=== PATIENT | female | born 1980 | race Caucasian/White ===

== ENCOUNTER 2019-09-06 23:22 | Inpatient (IN) | payer OTHER ==
[~2019-09-06] VITALS: Ht 172.7 cm; Wt 113.7 kg
[2019-09-07 04:03] LABS: Basophils # (auto) 0.1 10 ^3/uL (0-0.2); Basophils % (auto) 1.3 % (0.0-2.0); Eosinophils # (auto) 0.1 10 ^3/uL (0-0.8); Eosinophils % (auto) 1.1 % (0.0-7.0); Hematocrit 40.8 % (36.0-46.0); Hemoglobin 12.5 g/dL (12.2-16.2); Lymphocytes % (auto) 38.3 % (10.0-50.0); Mean Corpuscular Hemoglobin 27.3 pg (28.0-32.0); Mean Corpuscular Hgb Conc. 30.7 g/dL (32.0-36.0); Mean Corpuscular Volume 88.8 fL (80.0-100.0); Monocytes # (auto) 0.5 10 ^3/uL (0-1.3); Monocytes % (auto) 10.4 % (0.0-12.0); Neutrophils # (auto) 2.5 10 ^3/uL (1.6-8.6); Neutrophils % (auto) 48.9 % (37.0-80.0); Nucleated Red Blood Cells % 0.3 %; Platelet Count (auto) 256 10^3/uL (140-450); Red Cell Distribution Width 18.5 % (11.8-14.3); White Blood Cell 5.2 10^3/uL (4.4-10.8)
[2019-09-07 04:20] LABS: Albumin 2.9 g/dL (3.4-5.0); Calcium 8.6 mg/dL (8.5-10.1); Potassium 4.5 mmol/L (3.5-5.1)
[2019-09-07 04:25] LABS: BUN/Creatinine Ratio 10.9; Bilirubin, Total 0.6 mg/dL (0.2-1.0); Total Protein 6.9 g/dL (6.4-8.2)
[2019-09-07] MEDS ORDERED: SODIUM CHLORIDE 0.9% 1,000 ML IV ONE (05:00)
[2019-09-07 05:25] LABS: Urine Bacteria NONE SEEN /hpf (None Seen); Urine Blood Negative /uL (Negative); Urine Hyaline Cast FEW /lpf (0 - 2); Urine Mucus FEW (None Seen); Urine Specific Gravity 1.024 (1.001-1.035); Urine WBC 5 /hpf (0 - 5)
[2019-09-07 05:38] LABS: Amphetamine Screen, Urine NEGATIVE (NEGATIVE); Barbiturate Scree,Urine NEGATIVE (NEGATIVE); Benzodiazephine Screen, Urine NEGATIVE (NEGATIVE); Cannabinoid Screen, Urine NEGATIVE (NEGATIVE); Cocaine Screen, Urine NEGATIVE (NEGATIVE); Opiate Scree,Urine NEGATIVE (NEGATIVE); Phencyclidine Screen, Urine NEGATIVE (NEGATIVE)
[2019-09-07] MEDS ORDERED: AZITHROMYCIN 500MG/ 250ML 250 ML IV ONE (06:30)
[2019-09-07] MEDS ORDERED: cefTRIAXone 1GM/50ML D5W 50 ML IV ONE ×2 (06:30→15:15)
[2019-09-07] MEDS ORDERED: SODIUM CHLORIDE 0.9% 1,000 ML IV SCH (06:58)
[2019-09-07] MEDS ORDERED: chlordiazePOXIDE HCL 25 MG CAP PO SCH (07:00)
[2019-09-07] MEDS ORDERED: DEXTROSE (50%) 50ML SYRG IV PRN ×2 (07:00→15:15)
[2019-09-07] MEDS ORDERED: ACETAMINOPHEN 500 MG TAB PO PRN (07:00)
[2019-09-07] MEDS ORDERED: HYDROcodone-ACET 5/325MG TAB PO PRN (07:30)
[2019-09-07] MEDS ORDERED: MORPHINE SULFATE 4 MG/ML SYR/VIAL IV PRN (07:30)
[2019-09-07] MEDS ORDERED: DOCUSATE SOD 100 MG CAP PO PRN (07:30)
[2019-09-07] MEDS ORDERED: NITROGLYCERIN 0.4 MG SL TAB SL PRN (07:30)
[2019-09-07] MEDS ORDERED: ONDANSETRON HCL 4 MG/2 ML VIAL IV PRN (07:30)
[2019-09-07] MEDS ORDERED: MORPHINE SULF INJ 2 MG/ML SYRINGE 1ML IV PRN ×2 (07:30→16:45)
[2019-09-07] MEDS ORDERED: ACETAMINOPHEN 325 MG TAB PO PRN ×2 (07:30→13:30)
[2019-09-07] MEDS: InsuLIN REG 1unit/0.01ml Soln (100units/ml) SC SCH ×3 (07:55→17:00)
[2019-09-07] MEDS: ACCU-CHEK COMFORT CURVE STRIP VI SCH ×4 (07:56→21:22)
[2019-09-07 09:26] VITALS: BP 133/89
[2019-09-07 09:41] VITALS: BP 133/89
[2019-09-07] MEDS ORDERED: ASCORBIC ACID 1,000 MG TAB PO SCH (10:00)
[2019-09-07] MEDS ORDERED: DOXYCYCLINE 100MG/250ML 250 ML IV SCH (10:00)
[2019-09-07] MEDS ORDERED: CHOLECALCIFEROL (VITD3) 1,000IU=25mCg TAB PO SCH (10:00)
[2019-09-07] MEDS ORDERED: ZINC SULFATE 220mg CAP or TAB PO SCH (10:00)
[2019-09-07] MEDS: ENOXAPARIN SOD 40 MG/0.4 ML SYRINGE SC SCH (10:18)
[2019-09-07] MEDS ORDERED: BENA10TA9 PO (13:04)
[2019-09-07] MEDS ORDERED: BENA20TA14 PO (13:04)
[2019-09-07] MEDS ORDERED: BENAZEPRIL HCL 10 MG TAB PO ONE (13:45)
[2019-09-07] MEDS: BENAZEPRIL HCL 10 MG TAB PO SCH (13:45)
[2019-09-07 13:48] VITALS: BP 164/99
[2019-09-07] MEDS ORDERED: ALBUTEROL SULF HFA 90MCG INH 200DOSE IN SCH ×3 (14:00)
[2019-09-07] MEDS ORDERED: AZITHROMYCIN 250 MG TAB PO ONE (15:15)
[2019-09-07] MEDS ORDERED: hydrALAZINE HCL 20 MG/ML VL IV PRN (15:15)
[2019-09-07] MEDS: SODIUM CHLORIDE 0.9% 1,000 ML IV SCH (15:15)
[2019-09-07] MEDS ORDERED: methylPREDNISolone SOD SUCC 40 MG/ML VL IV ONE (15:15)
[2019-09-07] MEDS ORDERED: IPRATROPIUM BROM 0.5 MG/2.5ML INH SOL NEB PRN (15:15)
[2019-09-07] MEDS ORDERED: THIAMINE HCL 100 MG TAB PO ONE (15:15)
[2019-09-07] MEDS ORDERED: ALBUTEROL SULF 2.5 MG/0.5ML(0.5%) NEB SOLN NEB PRN (15:15)
[2019-09-07] MEDS ORDERED: chlordiazePOXIDE HCL 25 MG CAP PO PRN (15:15)
[2019-09-07] MEDS ORDERED: MULTIPLE VITAMINS W/ MINERALS TAB PO ONE (15:15)
[2019-09-07] MEDS ORDERED: FERR324T4 PO (16:29)
--- NOTE | 2019-09-07 16:29 | NUR ---
IV insertion IV access obtained, via clean sterile technique by inserting 20 gauge catheter at right forearm. IV secured properly. No trauma to site. Patient tolerated well.
[2019-09-07] MEDS ORDERED: METF-371 PO (16:30)
[2019-09-07] MEDS ORDERED: OMEP-260 PO (16:30)
[2019-09-07] MEDS ORDERED: PRAV20TA3 PO (16:31)
--- NOTE | 2019-09-07 16:40 | NUR ---
Accepting Note Received report from Jono MEJIA. Patient sitting up right in bed A&Ox4. Respirations even and non-labored, so S/S of distress or SOB noted, patient currently on 2L NC with O2 sats at 93%. Denies any pain, nausea, vomiting at moment. Complaints of a cough x 1 month. Informed patient of plan of care, patient verbalized understanding. Instructed patient to call for assistance as needed, call light within reach. Safety precautions in place, bed set to lowest locked position x 2 rails up. Will continue to monitor.
[2019-09-07] MEDS ORDERED: IOHEXOL 350 MG/ML 100ML IJ ONE ×2 (16:47→17:14)
[2019-09-07 16:54] VITALS: BP 104/48
--- NOTE | 2019-09-07 16:54 | NUR ---
Radiology at bedside. Patient being taken down for procedure.
[2019-09-07] MEDS: ALBUTEROL SULF 2.5 MG/0.5ML(0.5%) NEB SOLN NEB SCH (18:41)
[2019-09-07] MEDS: IPRATROPIUM BROM 0.5 MG/2.5ML INH SOL NEB SCH (18:41)
--- NOTE | 2019-09-07 19:15 | NUR ---
Opening Note Noc Rn round, pt. awake in bed. Pt. [id number]. Call light within reach. Will complete chart checks and continue to monitor.
--- NOTE | 2019-09-07 19:19 | NUR ---
Patient care endorsed to night ROBERTO Ohara
[2019-09-07] MEDS: methylPREDNISolone SOD SUCC 40 MG/ML VL IV SCH (21:54)
[2019-09-07 22:00] VITALS: BP 115/85
[2019-09-07] MEDS ORDERED: InsuLIN REG 1unit/0.01ml Soln (100units/ml) SC SCH (22:00)
--- NOTE | 2019-09-08 00:25 | NUR ---
Pt. awake in bed O2 levels Pt. awake in bed coughing. Pt. states she is having trouble breathing. pt. currently getting 2L NC with O2 sat at 89. O2 raised to 3L NC and raised to 94%. Pt. sitting up in bed and also given cough medicine as ordered. Pt. tolerated well. Pt. remains sitting up in bed and advised to take meaningful beds.
[2019-09-08] MEDS: guaiFENesin-DM 100/10mg/5ml SYR PO PRN ×2 (00:31→21:51)
[2019-09-08] MEDS: ALBUTEROL SULF 2.5 MG/0.5ML(0.5%) NEB SOLN NEB SCH ×4 (00:35→19:26)
[2019-09-08] MEDS: IPRATROPIUM BROM 0.5 MG/2.5ML INH SOL NEB SCH ×4 (00:35→19:26)
[2019-09-08 05:00] VITALS: BP 132/84
[2019-09-08] MEDS: SODIUM CHLORIDE 0.9% 1,000 ML IV SCH (05:33)
[2019-09-08] MEDS: ACCU-CHEK COMFORT CURVE STRIP VI SCH ×3 (05:56→21:53)
[2019-09-08 06:05] LABS: Basophils # (auto) 0 10 ^3/uL (0-0.2); Basophils % (auto) 0.7 % (0.0-2.0); Eosinophils # (auto) 0 10 ^3/uL (0-0.8); Eosinophils % (auto) 0.1 % (0.0-7.0); Hematocrit 38.9 % (36.0-46.0); Lymphocytes # (auto) 0.3 10 ^3/uL (0.4-5.4); Lymphocytes % (auto) 5.9 % (10.0-50.0); Mean Corpuscular Hemoglobin 27.5 pg (28.0-32.0); Monocytes # (auto) 0.1 10 ^3/uL (0-1.3); Monocytes % (auto) 2.3 % (0.0-12.0); Neutrophils # (auto) 5.2 10 ^3/uL (1.6-8.6); Nucleated Red Blood Cells % 0.1 %; Platelet Count (auto) 246 10^3/uL (140-450); Red Blood Cells 4.37 10^6/uL (4.0-5.20); White Blood Cell 5.8 10^3/uL (4.4-10.8)
[2019-09-08] MEDS: methylPREDNISolone SOD SUCC 40 MG/ML VL IV SCH (06:08)
[2019-09-08] MEDS: InsuLIN REG 1unit/0.01ml Soln (100units/ml) SC SCH ×3 (06:12→21:53)
[2019-09-08 06:16] LABS: Potassium 4.8 mmol/L (3.5-5.1)
[2019-09-08 06:24] LABS: Albumin 2.9 g/dL (3.4-5.0); BUN/Creatinine Ratio 14.6; Bilirubin, Total 0.9 mg/dL (0.2-1.0); Calcium 8.8 mg/dL (8.5-10.1); Magnesium 1.8 mg/dL (1.6-2.6); Total Protein 6.8 g/dL (6.4-8.2)
--- NOTE | 2019-09-08 06:58 | NUR ---
care endorsed care endorsed to day rn. pt. sitting in bed on phone. no distress.
--- NOTE | 2019-09-08 07:45 | NUR ---
Opening Shift Note Assumed care of patient, patient sitting in bed A&Ox4. Respirations even and non-labored,currently in 3L NC, no S/S of distress or SOB noted. Patient denies any pain at the moment. Instructed on POC and to call for assistance as needed, call light within reach. Safety measures in place, bed set to lowest locked position x 2 rails up. Will continue to monitor for changes Q1hr and PRN.
[2019-09-08] MEDS: cefTRIAXone 1GM/50ML D5W 50 ML IV SCH (08:58)
[2019-09-08 09:00] VITALS: BP 123/70
[2019-09-08] MEDS: ENOXAPARIN SOD 40 MG/0.4 ML SYRINGE SC SCH (09:56)
[2019-09-08] MEDS: THIAMINE HCL 100 MG TAB PO SCH (09:56)
[2019-09-08] MEDS: BENAZEPRIL HCL 10 MG TAB PO SCH (09:57)
[2019-09-08] MEDS: AZITHROMYCIN 250 MG TAB PO SCH (09:58)
[2019-09-08] MEDS: MULTIPLE VITAMINS W/ MINERALS TAB PO SCH (09:58)
[2019-09-08] MEDS: PANTOPRAZOLE 40 MG TAB PO SCH (09:58)
[2019-09-08] MEDS ORDERED: BENAZEPRIL HCL 10 MG TAB PO SCH (10:00)
[2019-09-08] MEDS ORDERED: chlordiazePOXIDE HCL 25 MG CAP PO SCH (10:00)
[2019-09-08] MEDS ORDERED: DEXTROSE (50%) 50ML SYRG IV PRN (11:45)
--- NOTE | 2019-09-08 12:40 | NUR ---
Tele box removed from patient per MD's order. Sanitized and [facility] to [facility].
[2019-09-08 13:00] VITALS: BP 124/67
[2019-09-08 17:00] VITALS: BP 121/83
[2019-09-08] MEDS: metFORMIN HYDROCHLORIDE 500 MG TAB PO SCH (18:00)
--- NOTE | 2019-09-08 19:02 | NUR ---
Closing note. Care of patient endorsed to night RN Katty, patient stable no S/S of distress noted
--- NOTE | 2019-09-08 19:25 | NUR ---
opening note pt is upright sitting in bed. She is in no pain or distress. o2 on. pt aware of plan for evening and says she doesn't need anything at this time. will monitor pt.
[2019-09-08 22:00] VITALS: BP 104/76
--- NOTE | 2019-09-08 22:40 | NUR ---
Sister/Contact Pt. requested to add her sister to list of people for contact in chart. Pt. provided name, Daniela Mariano, as her sister. Phone number [phone] and to use same password "[email or web address]".
--- NOTE | 2019-09-08 22:44 | NUR ---
Family updated on pt status Family of Manny Loving updated on patient's status and condition. All questions and concerns addressed. SISTER verbalized understanding.
[2019-09-09] MEDS: IPRATROPIUM BROM 0.5 MG/2.5ML INH SOL NEB SCH ×4 (00:34→18:13)
[2019-09-09] MEDS: ALBUTEROL SULF 2.5 MG/0.5ML(0.5%) NEB SOLN NEB SCH ×4 (00:35→18:13)
[2019-09-09 05:00] VITALS: BP 111/70
[2019-09-09] MEDS: guaiFENesin-DM 100/10mg/5ml SYR PO PRN ×2 (05:23→10:38)
--- NOTE | 2019-09-09 05:30 | NUR ---
Humidifier/IS Humidifier attached to nasal cannula. Incentive spirometer at bedside. Explained to pt. how to use and encouraged her to try. She said she would try later. Pt. explained the importance for using IS.
[2019-09-09 05:59] LABS: Potassium 4.6 mmol/L (3.5-5.1)
[2019-09-09] MEDS: ACCU-CHEK COMFORT CURVE STRIP VI SCH ×4 (06:30→21:45)
[2019-09-09] MEDS: InsuLIN REG 1unit/0.01ml Soln (100units/ml) SC SCH ×4 (06:31→21:45)
--- NOTE | 2019-09-09 06:57 | NUR ---
end of shift pt care endorsed to day rn pt resting in bed o2 on no pain no distress
--- NOTE | 2019-09-09 07:40 | NUR ---
Opening Shift Note Assumed care of patient, from Sena philippe RN. Patient sitting in bed A&Ox4, watching TV. Respirations even and non-labored, no S/S of distress or SOB noted. Patient denies any pain at the moment. Instructed on POC and and to call for assistance as needed, call light within reach. Incentive Spirometer at bedside, educated patient about usage of IS. Safety measures in place, bed set to lowest locked position x 2 rails up. Will continue to monitor for changes Q1hr and PRN.
[2019-09-09] MEDS: metFORMIN HYDROCHLORIDE 500 MG TAB PO SCH ×2 (08:00→18:00)
[2019-09-09 09:00] VITALS: BP 136/78
[2019-09-09] MEDS: BENAZEPRIL HCL 10 MG TAB PO SCH (09:41)
[2019-09-09] MEDS: THIAMINE HCL 100 MG TAB PO SCH (09:41)
[2019-09-09] MEDS: MULTIPLE VITAMINS W/ MINERALS TAB PO SCH (09:42)
[2019-09-09] MEDS: PANTOPRAZOLE 40 MG TAB PO SCH (09:42)
[2019-09-09] MEDS: AZITHROMYCIN 250 MG TAB PO SCH (09:42)
[2019-09-09] MEDS ORDERED: chlordiazePOXIDE HCL 25 MG CAP PO SCH (10:00)
[2019-09-09 13:00] VITALS: BP 108/75
--- NOTE | 2019-09-09 15:28 | NUR ---
IV Access Lost IV access in both arms. Placed 22G in left forearm, in one attempt patient tolerated well. IV patent and intact. Education to patient provided.
[2019-09-09] MEDS: cefTRIAXone 1GM/50ML D5W 50 ML IV SCH (15:52)
[2019-09-09 17:00] VITALS: BP 110/71
--- NOTE | 2019-09-09 19:18 | NUR ---
Closing Note Endorsed patient care to Katty RN. Patient stable safety measures in place.
--- NOTE | 2019-09-09 19:25 | NUR ---
Opening Shift Note Assumed care of patient. Patient sitting in bed A&Ox4, watching TV. Respirations even and non-labored, no S/S of distress or SOB noted. Patient denies any pain at the moment. Instructed on POC and and to call for assistance as needed, call light within reach. Incentive Spirometer at bedside, educated patient about usage of IS. Safety measures in place, bed set to lowest locked position x 2 rails up. Will continue to monitor for changes Q1hr and PRN.
--- NOTE | 2019-09-09 19:35 | NUR ---
process technician at bedside
[2019-09-09 22:00] VITALS: BP 117/83
[2019-09-10] VITALS (7 sets, daily range): BP systolic 112–133; BP diastolic 73–85
[2019-09-10] MEDS: IPRATROPIUM BROM 0.5 MG/2.5ML INH SOL NEB SCH ×4 (00:03→18:26)
[2019-09-10] MEDS: ALBUTEROL SULF 2.5 MG/0.5ML(0.5%) NEB SOLN NEB SCH ×4 (00:04→18:25)
[2019-09-10] MEDS: guaiFENesin-DM 100/10mg/5ml SYR PO PRN ×2 (00:25→23:46)
[2019-09-10] MEDS: ACCU-CHEK COMFORT CURVE STRIP VI SCH ×4 (05:58→21:27)
[2019-09-10] MEDS: InsuLIN REG 1unit/0.01ml Soln (100units/ml) SC SCH ×5 (06:06→21:28)
[2019-09-10] MEDS ORDERED: chlordiazePOXIDE HCL 25 MG CAP PO SCH (07:00)
--- NOTE | 2019-09-10 08:28 | NUR ---
Opening Shift Note RECEIVED REPORT FROM NOC RN. Assumed care of patient, awake and alert. No S/S of distress/SOB or pain. BED IN LOWEST, LOCKED POSITION WITH SIDERAILS UP x2 AND CALL LIGHT WITHIN REACH. Instructed on POC and to call for assist PRN, will continue to monitor for changes Q1hr and PRN.
[2019-09-10] MEDS: metFORMIN HYDROCHLORIDE 500 MG TAB PO SCH ×2 (08:41→18:11)
[2019-09-10] MEDS: PANTOPRAZOLE 40 MG TAB PO SCH (09:48)
[2019-09-10] MEDS: MULTIPLE VITAMINS W/ MINERALS TAB PO SCH (09:48)
[2019-09-10] MEDS: cefTRIAXone 1GM/50ML D5W 50 ML IV SCH (09:48)
[2019-09-10] MEDS: THIAMINE HCL 100 MG TAB PO SCH (09:48)
[2019-09-10] MEDS: BENAZEPRIL HCL 10 MG TAB PO SCH (09:48)
[2019-09-10] MEDS: AZITHROMYCIN 250 MG TAB PO SCH (09:49)
--- NOTE | 2019-09-10 11:25 | NUR ---
PULSE OX CHECK ON ROOM AIR. PATIENT O2 SATURATION IS 85%. WILL ADVISE RT TO PERFORM ABG.
--- NOTE | 2019-09-10 11:35 | NUR ---
Respiratory note: At bedside for room air ABG draw. Pt ambulated to restroom and back to bed, SPO2 83-85%. ABG sample drawn, results reported to RN and Dr. Espino.
[2019-09-10] MEDS ORDERED: predniSONE 20 MG TAB PO ONE (12:15)
--- NOTE | 2019-09-10 15:15 | NUR ---
Assessment Patient is a 39-year old female who is alert and oriented. Prior to admission patient lived home with her family and function independently. Patient informed me she has a cane for home use. Patient will return home to her prior living arrangements post discharge and family will transport her home. Advised patient there is a Social Service consult for home oxygen. Informed patient clinical information will be faxed to [facility] [place]. Informed patient she has a right to participate in all discharge planning. Patient verbalized understanding and agreed to discharge plan. Faxed clinical information to [facility] [place] requesting for portable oxygen to be deliver to front lobby or bedside. Addendum: 09/11/19 at 0820 by ROBERT WHALEY Amended: Links added.
--- NOTE | 2019-09-10 20:10 | NUR ---
Opening Shift Note Assumed care of patient, awake and alert. No S/S of distress/SOB or pain. Patient is on 3 liters of oxygen via nasal cannula. Respirations even and unlabored. Instructed on POC and to call for assist PRN, will continue to monitor for changes Q1hr and PRN.
--- NOTE | 2019-09-10 22:30 | NUR ---
Temperature reassessed and is 98.8 F. Patient asymptomatic.
--- NOTE | 2019-09-10 23:51 | NUR ---
Patient medicated with 650 mg PO Tylenol for 7/ headache per patient request. Patient refuses morphine and refuses [place] for pain.
--- NOTE | 2019-09-11 | NUR ---
Incentive spirometer (IS) education provided. Patient educated to use IS 10 times per hour while awake. Patient verbalized understanding and performed return demonstration. Patient able to reach 800 ml.
[2019-09-11] MEDS: ALBUTEROL SULF 2.5 MG/0.5ML(0.5%) NEB SOLN NEB SCH ×4 (00:13→19:09)
[2019-09-11] MEDS: IPRATROPIUM BROM 0.5 MG/2.5ML INH SOL NEB SCH ×4 (00:13→19:09)
--- NOTE | 2019-09-11 00:51 | NUR ---
Patient has no complaints of pain at this time.
--- NOTE | 2019-09-11 02:44 | NUR ---
Patient reports SOB. Patient's pulse oximeter reading on 3 liters of oxygen via nasal cannula is 94%. Respiratory therapy paged for PRN breathing treatment. Per patient she became short of breath after walking to restroom. Patient was not wearing oxygen when going to restroom per patient. Will provide patient with longer oxygen tubing.
[2019-09-11 05:00] VITALS: BP 108/76
[2019-09-11 06:20] LABS: Potassium 3.9 mmol/L (3.5-5.1)
[2019-09-11 06:26] LABS: BUN/Creatinine Ratio 23.7; Calcium 9.2 mg/dL (8.5-10.1); Magnesium 2.4 mg/dL (1.6-2.6)
[2019-09-11] MEDS: InsuLIN REG 1unit/0.01ml Soln (100units/ml) SC SCH ×4 (06:27→21:33)
[2019-09-11] MEDS: ACCU-CHEK COMFORT CURVE STRIP VI SCH ×4 (06:27→21:33)
[2019-09-11] MEDS: guaiFENesin-DM 100/10mg/5ml SYR PO PRN (06:28)
--- NOTE | 2019-09-11 07:00 | NUR ---
CLOSING NOTE No S/S of distress/SOB or pain. Patient is on 3 liters of oxygen via nasal cannula. Respirations even and unlabored.
[2019-09-11] MEDS: metFORMIN HYDROCHLORIDE 500 MG TAB PO SCH ×2 (08:16→17:46)
[2019-09-11 09:00] VITALS: BP 102/76
[2019-09-11] MEDS: THIAMINE HCL 100 MG TAB PO SCH (09:51)
[2019-09-11] MEDS: cefTRIAXone 1GM/50ML D5W 50 ML IV SCH (09:51)
[2019-09-11] MEDS: predniSONE 20 MG TAB PO SCH (09:51)
[2019-09-11] MEDS: PANTOPRAZOLE 40 MG TAB PO SCH (09:52)
[2019-09-11] MEDS: MULTIPLE VITAMINS W/ MINERALS TAB PO SCH (09:52)
[2019-09-11] MEDS: BENAZEPRIL HCL 10 MG TAB PO SCH (09:52)
[2019-09-11] MEDS: AZITHROMYCIN 250 MG TAB PO SCH (09:52)
[2019-09-11] MEDS ORDERED: AZIT500T PO (11:56)
[2019-09-11 13:00] VITALS: BP 106/65
--- NOTE | 2019-09-11 13:51 | NUR ---
D/C Planning Placed call to [employer] [phone] spoke to Fabio. Per Fabio patient O2SAT is at 89.6 and in order to meet criteria for home O2 it has to be at 88.00. Informed ROBERTO Musa. Per ROBERTO Musa she will notify , Dr. Espino.
--- NOTE | 2019-09-11 13:52 | NUR ---
Spoke to MD MD Espino notified that patient does not qualify for home oxygen. Per MD Espino, place patient on room air ambulate and redraw abg if desating. If patient still does not meet criteria for home oxygen dc home without it and patient can f/u with PCP. Patient placed on room air at this time. Will cont to monitor
--- NOTE | 2019-09-11 16:17 | NUR ---
Oxygen update per Katy social work msw [facility] will approve oxygen for patient and awaiting oxygen delivery to bedside at this time. Patient notified.
--- NOTE | 2019-09-11 16:25 | NUR ---
D/C harpoon engagement planning operator Jazmine informed me a second ABG was completed. Faxed updated ABG to [facility]. Per Dee Dee with [facility]:) patient meets criteria and they will proceed with order. Placed follow up call to [facility] spoke to Fabio. Per Fabio oxygen will be deliver to bedside between 17:00-20:00. Informed ROBERTO Musa.
[2019-09-11 17:00] VITALS: BP 111/78
--- NOTE | 2019-09-11 19:05 | NUR ---
Patient care endorsed endorsed care to Daria christensen. Patient waiting on oxygen delivery to bedside by [facility] for nd home as ordered. Patient sitting up in chair currently on 2L n/c. No distress or sob noted. Call light within reach.
[2019-09-11 20:00] VITALS: BP 112/66
--- NOTE | 2019-09-11 20:10 | NUR ---
Discharge education provided This RN provided patient with discharge packet and went over information contained in the packet. This RN answered patient's questions.
--- NOTE | 2019-09-11 20:25 | NUR ---
Called [facility] for update regarding ETA for portable oxygen delivery. Left message with Viviana. Thomas given phone number of hospital and extension for [facility]. Per Martha this RN will be called with an update.
--- NOTE | 2019-09-11 20:53 | NUR ---
Called [facility] for update regarding ETA for portable oxygen delivery. Left message with Viviana. Thomas given phone number of hospital and extension for [facility]. Per Martha this RN will be called with an update.
--- NOTE | 2019-09-11 21:20 | NUR ---
Patient states her mom who was here to pick her up left. Patient still waiting for delivery of portable oxygen from [facility]. This RN has received no updates from [facility]. This RN informed the charge hand patient is not able to be discharged at this time.
[2019-09-11 22:00] VITALS: BP 112/66
[2019-09-12] MEDS: IPRATROPIUM BROM 0.5 MG/2.5ML INH SOL NEB SCH ×3 (00:10→11:18)
[2019-09-12] MEDS: ALBUTEROL SULF 2.5 MG/0.5ML(0.5%) NEB SOLN NEB SCH ×3 (00:10→11:19)
[2019-09-12] MEDS: guaiFENesin-DM 100/10mg/5ml SYR PO PRN ×2 (00:13→06:01)
--- NOTE | 2019-09-12 04:06 | NUR ---
Hospitalist paged regarding patient being unable to be discharged due to not having portable oxygen delivered. Awaiting callback at this time.
--- NOTE | 2019-09-12 04:48 | NUR ---
GARY Bennett, called back regarding patient being unable to be discharged due to not having portable oxygen delivered. Per GARY Bennett, keep the patient admitted.
[2019-09-12 05:00] VITALS: BP 127/86
--- NOTE | 2019-09-12 05:37 | NUR ---
Called [facility] for update regarding portable oxygen delivery. Left message with Beverley. Beverley given phone number of hospital and extension for [facility]. Per Beverley she will page reverberatory furnace supervisor that this RN has called three times.
[2019-09-12] MEDS: InsuLIN REG 1unit/0.01ml Soln (100units/ml) SC SCH ×2 (06:09→11:30)
[2019-09-12] MEDS: ACCU-CHEK COMFORT CURVE STRIP VI SCH ×2 (06:09→11:30)
--- NOTE | 2019-09-12 06:58 | NUR ---
Called [facility] for update regarding portable oxygen delivery. Per dispatch [facility] is not open until 9 AM and hours of operation are 9 AM to 5:30 PM. Per dispatch this RN's previous message from earlier in the morning was sent out.
--- NOTE | 2019-09-12 07:00 | NUR ---
CLOSING NOTE No S/S of distress/SOB or pain. Patient is on 3 liters of oxygen via nasal cannula.
[2019-09-12] MEDS: metFORMIN HYDROCHLORIDE 500 MG TAB PO SCH (08:00)
[2019-09-12 09:00] VITALS: BP 95/57
[2019-09-12] MEDS: cefTRIAXone 1GM/50ML D5W 50 ML IV SCH (09:00)
--- NOTE | 2019-09-12 09:43 | NUR ---
D/C planning Received a call from ROBERTO Musa advising me oxygen was never deliver to patient as [facility] stated. Placed follow up call to [facility] spoke to Fabio. Per Fabio he does not know why the portable never got deliver. Advised Fabio to transfer me to his Scrap Drop Operator spoke to Marcelino. Scrap Drop Operator Marcelino apologized with the delay providing me with an ETA between 10:30-11:30. Informed ROBERTO Musa.
[2019-09-12] MEDS: THIAMINE HCL 100 MG TAB PO SCH (09:47)
[2019-09-12] MEDS: MULTIPLE VITAMINS W/ MINERALS TAB PO SCH (09:47)
[2019-09-12] MEDS: predniSONE 20 MG TAB PO SCH (09:48)
[2019-09-12] MEDS: BENAZEPRIL HCL 10 MG TAB PO SCH (10:00)
[2019-09-12] MEDS: AZITHROMYCIN 250 MG TAB PO SCH (10:31)
[2019-09-12] MEDS: PANTOPRAZOLE 40 MG TAB PO SCH (10:31)
[2019-09-12 13:00] VITALS: BP 118/82
--- NOTE | 2019-09-12 13:45 | NUR ---
Discharge instructions given as ordered. Portable oxygen delivered to bedside. Patient instructed on oxygen used. Encourage to follow up with PMD as instructed. All questions and concerns addressed. Patient verbalized understanding. Medication reconciliation form completed and copy given to patient. IV removed with catheter intact, pressure dressing applied. Patient taken to vehicle via wheelchair with all personal belongings including portable oxygen, accompanied by staff and family member. No distress noted at time of departure.
== END 2019-09-12 13:45 | disposition home or self-care (01) | DRG 720 ==
LOC: ER 23:25 → TELE 23:26 → TELE-EAST 09-07 09:03 → EAST 09-10 08:52
PROVIDERS: ADMIT Hospitalist; ATTEND Internal Medicine
DX: A41.9 Sepsis, unspecified organism (principal); J96.01 Acute respiratory failure with hypoxia; J45.902 Unspecified asthma with status asthmaticus; J44.0 Chronic obstructive pulmonary disease with (acute) lower respiratory infection; E66.01 Morbid (severe) obesity due to excess calories; J44.1 Chronic obstructive pulmonary disease with (acute) exacerbation; J20.9 Acute bronchitis, unspecified; E11.9 Type 2 diabetes mellitus without complications; R00.0 Tachycardia, unspecified; F10.129 Alcohol abuse with intoxication, unspecified; I10 Essential (primary) hypertension; F17.200 Nicotine dependence, unspecified, uncomplicated; E78.5 Hyperlipidemia, unspecified; Z03.818 Encounter for observation for suspected exposure to other biological agents ruled out; Z68.38 Body mass index [BMI] 38.0-38.9, adult; Z71.6 Tobacco abuse counseling
CPT/HCPCS: 36415; 36600; 71045; 71275; 80048; 80053; 80061; 80307; 80320; 81001; 82728; 82805; 82962; 83036; 83735; 83880; 84443; 84702; 85025; 85379; 87040; 87070; 87804; 87880; 93306; 93971; 94640; 96361; 96365; 96367; 96372; G0378; J0696; J1815; J2405; J3490

== ENCOUNTER 2022-09-27 10:35 | Emergency (ER) | payer OTHER ==
[~2022-09-27] VITALS: Ht 157.5 cm; Wt 127.0 kg
[~2022-09-27 10:35] MED LIST: AZIT500T PO; BENA-19 PO; BENA-36 PO; FERR324T4 PO; METF-371 PO; OMEP1CAP70 PO; PRAV20TA3 PO
[2022-09-27 11:03] LABS: Urine Bacteria FEW /hpf (None Seen); Urine Blood 2+ /uL (Negative); Urine Specific Gravity 1.031 (1.001-1.035); Urine WBC 1 /hpf (0 - 5)
[2022-09-27 11:32] LABS: Basophils # (auto) 0.1 10 ^3/uL (0-0.2); Basophils % (auto) 1.3 % (0.0-2.0); Eosinophils # (auto) 0.1 10 ^3/uL (0-0.8); Eosinophils % (auto) 1.8 % (0.0-7.0); Hematocrit 40.5 % (36.0-46.0); Hemoglobin 13.6 g/dL (12.2-16.2); Lymphocytes # (auto) 1.8 10 ^3/uL (0.4-5.4); Lymphocytes % (auto) 26.2 % (10.0-50.0); Mean Corpuscular Hemoglobin 32.6 pg (28.0-32.0); Mean Corpuscular Hgb Conc. 33.7 g/dL (32.0-36.0); Mean Corpuscular Volume 96.8 fL (80.0-100.0); Monocytes # (auto) 0.5 10 ^3/uL (0-1.3); Monocytes % (auto) 7.3 % (0.0-12.0); Neutrophils # (auto) 4.4 10 ^3/uL (1.6-8.6); Neutrophils % (auto) 63.4 % (37.0-80.0); Nucleated Red Blood Cells % 0.1 %; Red Blood Cells 4.18 10^6/uL (4.0-5.20); Red Cell Distribution Width 14.5 % (11.8-14.3)
[2022-09-27 11:58] LABS: Potassium 4.5 mmol/L (3.5-5.1)
[2022-09-27 12:10] LABS: Albumin 3.6 g/dL (3.4-5.0); Bilirubin, Total 0.8 mg/dL (0.2-1.0); CRP High Sensitivity 1.24 mg/dL (< 0.3); Calcium 8.6 mg/dL (8.5-10.1); Total Protein 6.1 g/dL (6.4-8.2)
[2022-09-27] MEDS ORDERED: CEPH-510 PO (16:24)
[2022-09-27 16:29] VITALS: BP 111/70
[2022-09-27] MEDS ORDERED: KETOROLAC TROMETH 60MG/2ML VIAL IM ONE (16:30)
== END 2022-09-27 16:58 | disposition home or self-care (01) ==
LOC: ER 10:35
DX: M54.9 Dorsalgia, unspecified (principal); R07.81 Pleurodynia; R11.0 Nausea; J44.9 Chronic obstructive pulmonary disease, unspecified; I10 Essential (primary) hypertension; E11.9 Type 2 diabetes mellitus without complications; E78.5 Hyperlipidemia, unspecified; Z79.2 Long term (current) use of antibiotics; Z79.899 Other long term (current) drug therapy
CPT/HCPCS: 36415; 71046; 74176; 80053; 81001; 81025; 83605; 84484; 85025; 86141; 87086; 96372; 99285; J1885

== ENCOUNTER 2023-03-31 16:55 | Emergency (ER) | payer OTHER ==
[~2023-03-31] VITALS: Ht 157.5 cm; Wt 123.0 kg
[~2023-03-31 16:55] MED LIST changes: +CEPH-510 PO
[2023-03-31 19:06] LABS: Alanine Aminotransferase 17 U/L (7-40); Albumin 4.5 g/dL (3.2-4.8); Alkaline Phosphatase 66 U/L (46-116); Anion Gap 10 (5-15); Aspartate Aminotransferase 14 U/L (13-40); BUN/Creatinine Ratio 10.9 (10.0-20.0); Bilirubin, Total 0.4 mg/dL (0.2-1.0); Blood Urea Nitrogen 6 mg/dL (9-23); Calcium 9.5 mg/dL (8.7-10.4); Carbon Dioxide 22 mmol/L (20-30); Chloride 101 mmol/L (98-107); Glucose 125 mg/dL (74-106); Sodium 133 mmol/L (136-145)
[2023-03-31 19:13] LABS: Basophils # (auto) 0 10 ^3/uL (0-0.2); Basophils % (auto) 0.5 % (0.0-2.0); Eosinophils # (auto) 0.1 10 ^3/uL (0-0.8); Eosinophils % (auto) 0.7 % (0.0-7.0); Hematocrit 45.4 % (36.0-46.0); Lymphocytes # (auto) 0.4 10 ^3/uL (0.4-5.4); Lymphocytes % (auto) 4.6 % (10.0-50.0); Mean Corpuscular Hemoglobin 32.2 pg (28.0-32.0); Mean Corpuscular Hgb Conc. 33.1 g/dL (32.0-36.0); Mean Corpuscular Volume 97.4 fL (80.0-100.0); Monocytes # (auto) 0.8 10 ^3/uL (0-1.3); Monocytes % (auto) 9.5 % (0.0-12.0); Neutrophils # (auto) 7.3 10 ^3/uL (1.6-8.6); Neutrophils % (auto) 84.7 % (37.0-80.0); Nucleated Red Blood Cells % 0.1 %; Red Blood Cells 4.66 10^6/uL (4.0-5.20); Red Cell Distribution Width 14.3 % (11.8-14.3); White Blood Cell 8.6 10^3/uL (4.4-10.8)
[2023-03-31] MEDS ORDERED: ACETAMINOPHEN 325 MG TAB PO ONE (19:30)
[2023-03-31] MEDS ORDERED: NIRM1TAB PO (19:34)
[2023-03-31 20:11] VITALS: BP 137/84; PULSE 111; RESP 20; TEMP 98.5; O2SAT 94
[2023-03-31 21:20] LABS: Urine WBC None Seen /hpf (0 - 5)
[2023-03-31 21:39] LABS: Urine Amorphous Crystal MOD /hpf (None Seen); Urine Bacteria NONE SEEN /hpf (None Seen); Urine Blood Negative /uL (Negative); Urine Clarity CLOUDY (Clear); Urine Color Yellow (Yellow); Urine Mucus FEW (None Seen); Urine Protein, UAD TRACE (Negative); Urine Specific Gravity 1.027 (1.001-1.035)
== END 2023-03-31 20:19 | disposition home or self-care (01) ==
LOC: EDUNIT# 16:55 → ER 16:55 → EDBD 16:55 → ER 20:19
DX: U07.1 COVID-19 (principal); R07.89 Other chest pain; I10 Essential (primary) hypertension; E11.9 Type 2 diabetes mellitus without complications; E78.5 Hyperlipidemia, unspecified; J44.9 Chronic obstructive pulmonary disease, unspecified; Z79.2 Long term (current) use of antibiotics; Z79.899 Other long term (current) drug therapy
CPT/HCPCS: 36415; 71045; 80053; 81001; 85025; 93005